=== PATIENT | male | born 1960 | race Caucasian/White ===

== ENCOUNTER 2017-06-16 22:59 | Emergency (ER) | payer BC ==
[2017-06-17] MEDS: ACETAMINOPHEN 325 MG TAB PO (00:43)
== END 2017-06-17 03:26 | disposition left against medical advice (07) ==
LOC: FTE 22:59
DX: J20.9 Acute bronchitis, unspecified (principal); C90.00 Multiple myeloma not having achieved remission
CPT/HCPCS: 71010; 87400; 99284-25

== ENCOUNTER 2018-12-30 16:42 | Emergency (ER) | payer BC ==
[2018-12-30] MEDS: IBUPROFEN 800 MG TAB PO (17:23)
== END 2018-12-30 18:55 | disposition home or self-care (01) ==
LOC: FTE 16:42
DX: S62.347A Nondisplaced fracture of base of fifth metacarpal bone, left hand, initial encounter for closed fracture (principal); W01.0XXA Fall on same level from slipping, tripping and stumbling without subsequent striking against object, initial encounter; Y92.9 Unspecified place or not applicable
CPT/HCPCS: 29125; 73110-LT; 73130-LT; 99283-25